=== PATIENT | female | born 1965 | race Caucasian/White ===

== ENCOUNTER 2017-08-25 08:13 | Day surgery (SDC) | payer BC ==
[2017-08-22 14:40] VITALS: BMI 25.0
[2017-08-25] MEDS ORDERED: PROPOFOL 20 ML ONE ×3 (09:26)
[2017-08-25] MEDS ORDERED: DEXAMETHASONE SOD PHOSPHATE 10 MG/1 ML VIAL ONE (09:30)
[2017-08-25 10:41] VITALS: TEMP 97.7
[2017-08-25 11:51] VITALS: BP 111/71; PULSE 72
--- NOTE | 2017-08-26 14:21 | PATH ---
Surgical Pathology Report Patient Name: TYSON AGUILAR [facility]. Rec. #: [id number] /Age/Gender: 1965 (Age: 52) / F Account: [id number] Location: U-ENDOSCOPY Taken: 08/25/2017 Received: 08/25/2017 Reported: 08/26/2017 Physicians: Lopez Hoyos M.D. Specimen(s) Received A: BX DUODENUM B: BX ANTRUM C: BX GE JUNCTION D: BX POLYP RECTUM E: BX POLYP HEPATIC FLEXURE F: BX ILEUM/CECUM Clinical History Abdominal pain, colon cancer screening Gastritis, colon polyp, rectal ulcer Final Diagnosis A. 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 NO HISTOLOGIC EVIDENCE OF GLUTEN SENSITIVE ENTEROPATHY (CELIAC DISEASE). B. STOMACH, ANTRUM, BIOPSY: GASTRIC ANTRAL MUCOSA WITH MILD CHRONIC GASTRITIS AND MILD REACTIVE GASTROPATHY. IMMUNOSTAIN FOR H. PYLORI IS NEGATIVE FOR ORGANISMS. C. GE JUNCTION, BIOPSY: SQUAMOUS EPITHELIUM WITH CHRONIC INFLAMMATION AND REFLUX TYPE CHANGES. NO COLUMNAR EPITHELIUM PRESENT (NO INTESTINAL METAPLASIA/GREGORY'S ESOPHAGUS IDENTIFIED). D. RECTUM, POLYP, BIOPSY: FRAGMENTS OF HYPERPLASTIC POLYP WITH SERRATED FEATURES. E. COLON, HEPATIC FLEXURE, POLYP, BIOPSY: POLYPOID FRAGMENT OF COLONIC MUCOSA WITH PROMINENT REACTIVE LYMPHOID AGGREGATE. F. ILEUM/CECUM, BIOPSY: ILEAL AND COLONIC MUCOSA WITHOUT SIGNIFICANT PATHOLOGIC CHANGES. NO EVIDENCE OF ACTIVE INFLAMMATION, SIGINIFICANT ARCHITECTURAL DISTORTION, GRANULOMATA OR DYSPLASIA; NO EVIDENCE OF MICROSCOPIC COLITIS. Electronically Signed Carlos A Caldwell M.D. Gross Description A. Received in formalin, labeled "second portion of duodenum and bulb" are three fragments of muñoz tissue 0.3 cm in greatest dimension each. The specimens are submitted in toto in one cassette. B. Received in formalin, labeled "antrum" are two fragments of muñoz tissue 0.3 cm in greatest dimension each. The specimens are submitted in toto in one cassette. C. Received in formalin, labeled "GE junction" are two fragments of muñoz-white tissue with 0.2-0.4 cm in greatest dimension. The specimens are submitted in toto in one cassette. D. Received in formalin, labeled "polyp rectum" are four fragments of muñoz-pink tissue 0.2-0.3 cm in greatest dimension. The specimens are submitted in toto in one cassette. E. Received in formalin, labeled "biopsy polyp hepatic flexure" is a fragment of muñoz tissue measuring 0.2 cm in greatest dimension. The specimen is submitted in toto in one cassette. F. Received in formalin, labeled "biopsy ileum rule out microscopic colitis" are three fragments of muñoz tissue 0.2-0.3 cm in greatest dimension. The specimens are submitted in toto in one cassette. AF/08/25/2017 final08/25/2017
== END 2017-08-25 11:51 | disposition home or self-care (01) ==
LOC: JASU-ENDO 08:13
PROVIDERS: ATTEND Internal Medicine Gastroenterology
PROC: 0DBP8ZX Excision of Rectum, Via Natural or Artificial Opening Endoscopic, Diagnostic (ICD-10-PCS; 2017-08-25)
PROC: 0DB98ZX Excision of Duodenum, Via Natural or Artificial Opening Endoscopic, Diagnostic (ICD-10-PCS; 2017-08-25)
PROC: 0DB68ZX Excision of Stomach, Via Natural or Artificial Opening Endoscopic, Diagnostic (ICD-10-PCS; 2017-08-25)
PROC: 0DB58ZX Excision of Esophagus, Via Natural or Artificial Opening Endoscopic, Diagnostic (ICD-10-PCS; 2017-08-25)
PROC: 0DBK8ZX Excision of Ascending Colon, Via Natural or Artificial Opening Endoscopic, Diagnostic (ICD-10-PCS; principal; 2017-08-25 10:00)
DX: Z12.11 Encounter for screening for malignant neoplasm of colon (principal); K62.1 Rectal polyp; D12.2 Benign neoplasm of ascending colon; K64.8 Other hemorrhoids; K57.30 Diverticulosis of large intestine without perforation or abscess without bleeding; K29.00 Acute gastritis without bleeding
CPT/HCPCS: 88305-TC; 88342-TC

== ENCOUNTER 2024-02-04 04:22 | Day surgery (SDC) | payer BC ==
[2024-02-02 07:32] VITALS: BMI 25.7
[2024-02-04 11:41] VITALS: TEMP 97.8
[2024-02-04 11:50] VITALS: RESP 18
[2024-02-04 12:17] VITALS: BP 114/66; PULSE 84
== END 2024-02-04 12:25 | disposition home or self-care (01) ==
LOC: JASU-ENDO 04:22
PROVIDERS: ATTEND Internal Medicine Gastroenterology
PROC: 0DB98ZX Excision of Duodenum, Via Natural or Artificial Opening Endoscopic, Diagnostic (ICD-10-PCS; 2024-02-04)
PROC: 0DB78ZX Excision of Stomach, Pylorus, Via Natural or Artificial Opening Endoscopic, Diagnostic (ICD-10-PCS; 2024-02-04)
PROC: 0DB68ZX Excision of Stomach, Via Natural or Artificial Opening Endoscopic, Diagnostic (ICD-10-PCS; 2024-02-04)
PROC: 0DBL8ZX Excision of Transverse Colon, Via Natural or Artificial Opening Endoscopic, Diagnostic (ICD-10-PCS; principal; 2024-02-04 11:00)
DX: Z12.11 Encounter for screening for malignant neoplasm of colon (principal); K63.5 Polyp of colon; K57.30 Diverticulosis of large intestine without perforation or abscess without bleeding; K29.80 Duodenitis without bleeding; K21.00 Gastro-esophageal reflux disease with esophagitis, without bleeding; K31.7 Polyp of stomach and duodenum; Z86.010 Personal history of colon polyps
CPT/HCPCS: 88305-TC; 88342-TC